=== PATIENT | male | born 1940 | race African-American/Black ===

== ENCOUNTER 2021-09-18 17:09 | Emergency (ER) | payer MEDICARE, OTHER ==
[~2021-09-18] VITALS: Ht 177.8 cm; Wt 101.0 kg
[~2021-09-18 17:09] MED LIST: AMLO10TA80; ATOR40TA70; HYDR12.529; LISI40TA13
[2021-09-18 18:13] VITALS: BP 126/78
== END 2021-09-18 18:15 | disposition home or self-care (01) ==
LOC: ER 17:09
DX: E11.65 Type 2 diabetes mellitus with hyperglycemia (principal); I10 Essential (primary) hypertension
CPT/HCPCS: 82962; 99282

== ENCOUNTER 2022-04-24 07:25 | Inpatient (IN) | payer MEDICARE ==
[~2022-04-24] VITALS: Ht 172.7 cm; Wt 102.1 kg
[2022-04-24] VITALS (7 sets, daily range): BP systolic 165–194; BP diastolic 92–108
[2022-04-24] MEDS ORDERED: LISI-648 MT (08:34)
[2022-04-24] MEDS ORDERED: COR6 MT (08:34)
[2022-04-24 08:55] LABS: BASOPHILS % 0.4 % (0.0-2.0); HEMATOCRIT. 29.8 % (42.0-52.0); HEMOGLOBIN. 10.1 g/dL (14.0-18.0); LYMPHOCYTES % 23.9 % (20.0-50.0); MEAN CORPUSCULAR HEMOGLOBIN 28.7 pg (28.0-32.0); MEAN CORPUSCULAR VOLUME 84.5 fL (80.0-94.0); MEAN PLATELET VOLUME 8.5 fl (7.4-10.4); MONOCYTES % 8.4 % (2.0-8.0); NEUTROPHILS % 64.3 % (40.0-76.0); PLATELET 150 x1000/uL (130-400); RED BLOOD CELL COUNT 3.52 mill/uL (4.7-6.1); RED CELL DISTRIBUTION WIDTH 13.8 % (11.6-14.6)
[2022-04-24 09:01] LABS: CHLORIDE 108 mEq/L (98-107); INR 1.1; PROTHROMBIN TIME 11.5 sec (9.6-11.0)
[2022-04-24] MEDS ORDERED: HYDRALAZINE 20MG/ML VIAL IV ONE (10:30)
[2022-04-24] MEDS ORDERED: ACETAMINOPHEN 325MG TABLET PO PRN (12:15)
[2022-04-24] MEDS ORDERED: ONDANSETRON HCL 4MG/2ML INJ IV PRN (12:15)
[2022-04-24] MEDS ORDERED: MAGNESIUM/ALUMINUM HYDROXIDE/SIMETHICONE 30ML UDC PO PRN (12:15)
[2022-04-24] MEDS ORDERED: HYDROCODONE/ACETAMINOPHEN 5/325MG TABLET PO PRN (12:15)
[2022-04-24] MEDS ORDERED: POTASSIUM CHLORIDE 20MEQ/PACKET PO NR (12:30)
[2022-04-24] MEDS: AMLODIPINE 10MG TABLET PO SCH (12:35)
[2022-04-24] MEDS: ENOXAPARIN 30MG/0.3ML SYR SUBCUT SCH (12:36)
[2022-04-24 12:54] LABS: CLARITY URINE CLEAR (CLEAR); COLOR URINE YELLOW (YELLOW); KETONES URINE NEGATIVE (NEGATIVE); LEUKOCYTE ESTERASE URINE NEGATIVE (NEGATIVE); NITRITE URINE NEGATIVE (NEGATIVE); OCCULT BLOOD URINE NEGATIVE (NEGATIVE); PH URINE 7.5 (4.5-8.0); PROTEIN URINE 2+ (NEGATIVE); SPECIFIC GRAVITY URINE 1.007 (1.005-1.030); UROBILINOGEN URINE 0.2 E.U./dL (0.2-1.0)
[2022-04-24] MEDS: HYDRALAZINE 20MG/ML VIAL IV PRN ×2 (14:23→22:18)
[2022-04-24] MEDS: NITROGLYCERIN OINT 1GM/INCH UDPKT TD SCH (16:34)
[2022-04-24] MEDS: LOSARTAN POTASSIUM 50 MG TABLET PO SCH (16:39)
[2022-04-24] MEDS ORDERED: NITROGLYCERIN 0.1MG/HR PATCH TOP SCH (18:00)
[2022-04-25] VITALS: BP 134/84
[2022-04-25 04:00] VITALS: BP 170/86
[2022-04-25] MEDS: NITROGLYCERIN OINT 1GM/INCH UDPKT TD SCH ×3 (06:00→13:12)
[2022-04-25] MEDS: HYDRALAZINE 20MG/ML VIAL IV PRN (06:30)
[2022-04-25 06:52] LABS: BASOPHILS % 0.2 % (0.0-2.0); EOSINOPHILS % 0.2 % (0.0-5.0); HEMATOCRIT. 33.2 % (42.0-52.0); HEMOGLOBIN. 11.4 g/dL (14.0-18.0); LYMPHOCYTES % 12.1 % (20.0-50.0); MEAN CORPUSCULAR VOLUME 84.2 fL (80.0-94.0); MEAN PLATELET VOLUME 8.6 fl (7.4-10.4); MONOCYTES % 7.7 % (2.0-8.0); NEUTROPHILS % 79.8 % (40.0-76.0); PLATELET 185 x1000/uL (130-400); RED BLOOD CELL COUNT 3.95 mill/uL (4.7-6.1); RED CELL DISTRIBUTION WIDTH 13.9 % (11.6-14.6)
[2022-04-25] MEDS ORDERED: OMEPRAZOLE 20MG CAPSULE EXTENDED RELEASE PO SCH (07:20)
[2022-04-25 08:00] VITALS: BP 166/88
[2022-04-25 08:57] LABS: T4 FREE 1.08 ng/dL (0.76-1.46)
[2022-04-25] MEDS: AMLODIPINE 10MG TABLET PO SCH (09:22)
[2022-04-25] MEDS: LOSARTAN POTASSIUM 50 MG TABLET PO SCH (09:22)
[2022-04-25] MEDS: ENOXAPARIN 30MG/0.3ML SYR SUBCUT SCH (09:23)
[2022-04-25 12:00] VITALS: BP 152/84
[2022-04-25] MEDS ORDERED: AMLO10TA80 MT (12:55)
[2022-04-25] MEDS ORDERED: HYDR100T26 MT (12:55)
[2022-04-25 16:00] VITALS: BP 154/82
[2022-04-26] MEDS ORDERED: ENOXAPARIN 40MG/0.4ML SYR SUBCUT SCH (13:00)
== END 2022-04-25 18:36 | disposition left against medical advice (07) | DRG 304 ==
LOC: ER 07:25 → EDBEDREQ 10:07 → EDBEDREQTM 12:21 → 6WST 15:26
PROVIDERS: ADMIT Internal Medicine Pulmonary Disease; ATTEND Internal Medicine Pulmonary Disease
DX: I16.0 Hypertensive urgency (principal); N17.0 Acute kidney failure with tubular necrosis; E44.1 Mild protein-calorie malnutrition; I12.9 Hypertensive chronic kidney disease with stage 1 through stage 4 chronic kidney disease, or unspecified chronic kidney disease; Z20.822 Contact with and (suspected) exposure to COVID-19; D63.1 Anemia in chronic kidney disease; E87.6 Hypokalemia; N18.9 Chronic kidney disease, unspecified; E78.5 Hyperlipidemia, unspecified; E78.00 Pure hypercholesterolemia, unspecified; R00.1 Bradycardia, unspecified; Z53.29 Procedure and treatment not carried out because of patient's decision for other reasons; Z79.899 Other long term (current) drug therapy; Z68.34 Body mass index [BMI] 34.0-34.9, adult
CPT/HCPCS: 36415; 71045; 76770; 80048; 80053; 80061; 81003; 83880; 84439; 84443; 84484; 85025; 87426; 93306; 93970; 99291; C9803; J0360; J1650